=== PATIENT | male | born 1975 | race Caucasian/White ===

== ENCOUNTER 2019-11-04 13:03 | Emergency (ER) | payer BC, SELFPAY ==
--- NOTE | 2019-11-04 13:16 | XR_ITS ---
PROCEDURE: XR LUMBAR SPINE 2-3V CLINICAL INDICATION: pain Pain following injury COMPARISON: No exams were available for comparison FINDINGS: No obvious fracture or dislocation. There is normal alignment. Degenerative disc disease is present in the lower thoracic spine and thoracolumbar junction as well as L4-5.. Endplate osteophytes are noted in the lumbar spine and lower thoracic spine IMPRESSION: No acute findings. Dictated by: Josr Jackson MD 11/04/2019 15:06 Electronically signed by Josr Jackson MD in [place] 11/04/2019 15:06
--- NOTE | 2019-11-04 13:21 | XR_ITS ---
PROCEDURE: XR SHOULDER LT MIN 2V CLINICAL INDICATION: pain COMPARISON: No exams were available for comparison FINDINGS: No fracture or dislocation. No lytic or blastic change. There is normal mineralization. The joint spaces are well-preserved. No significant degenerative/arthritic changes. No erosive changes evident. Other findings:None. IMPRESSION: No acute findings. Dictated by: Josr Jackson MD 11/04/2019 15:02 Electronically signed by Josr Jackson MD in [place] 11/04/2019 15:02
[2019-11-04 13:22] VITALS: BP 128/72; PULSE 94; RESP 21; TEMP 36.5; O2SAT 95; BMI 55.8
--- NOTE | 2019-11-04 13:24 | XR_ITS ---
PROCEDURE: XR COCCYX 2V CLINICAL INDICATION: injury Posttraumatic pain COMPARISON: No exams were available for comparison FINDINGS: The exam is technically limited due to patient's body habitus. No definite fracture or dislocation evident. If pain persists, CT may provide more thorough evaluation. The joint spaces are well-preserved. No significant degenerative/arthritic changes. No erosive changes evident. Other findings:None. IMPRESSION: No acute findings. Dictated by: Josr Jackson MD 11/04/2019 15:04 Electronically signed by Josr Jackson MD in [place] 11/04/2019 15:04
--- NOTE | 2019-11-04 14:07 | HMH.EDUTC ---
[facility] [place] Disposition Clinical Impression: Fall (on) (from) unspecified stairs and steps, initial encounter, Coccyx pain Low back pain Qualifiers: Chronicity: acute Back pain laterality: bilateral Sciatica presence: without sciatica Qualified Code(s): M54.5 - Low back pain Sprain of left shoulder Qualifiers: Encounter type: initial encounter Shoulder sprain type: unspecified sprain Qualified Code(s): S43.402A - Unspecified sprain of left shoulder joint, initial encounter Disposition: Home, Self-Care Condition on Discharge: Good Instructions: Low Back Pain, DI for Coccyx Fracture, DI for Shoulder Sprain Additional Instructions: Go home and rest. It would be best if you rested tomorrow too. No heavy lifting. No twisting. Take the oral medications as directed. The muscle relaxer (robaxin) will make you drowsy, so don't drive or operate heavy machinery after taking it. Follow up with your regular doctor. Follow up with orthopedics if you continue to have problems. I put in a referral to Dr. Pickett. You would need to call his office to schedule an appointment if your symptoms are not improving. GO TO THE ER FOR ANY WORSENING SYMPTOMS OR CONCERN, ESPECIALLY BOWEL OR BLADDER ISSUES, SADDLE AREA NUMBNESS, FEVER, ETC Prescriptions: Ibuprofen [Ibuprofen 800mg Tablet] 800 mg PO Q8HP PRN #30 tab PRN Reason: Moderate Pain Transmission Status: Received by [facility] methocarbamoL [Robaxin 750mg Tab] 750 mg PO TIDP PRN #30 tab PRN Reason: Muscle Spasm Transmission Status: Received by [facility] Referrals: Parminder Dudley MD [Primary Care Provider] - Yunior Pickett MD [Staff Physician] - Forms: Work/School Release Time of Disposition: 14:17 Medical Decision Making - Medical Records Medical records reviewed: Yes: I reviewed the patient's medical records. - Jorge Inquiry Pt receiving controlled substance: No Vital Signs: 11/04/19 13:22 11/04/19 14:17 Temperature 97.7 F 97.7 F Temperature Source Oral Pulse Rate 94 H Pulse Rate [Right Brachial] 94 H Respiratory Rate 21 21 Blood Pressure 128/72 Blood Pressure [Right Arm] 128/72 Blood Pressure Mean [Right Arm] 90 Blood Pressure Source [Right Arm] Automatic Cuff Blood Pressure Position [Right Arm] Sitting 02 Sat by Pulse Oximetry 95 Oxygen Delivery Method Room Air Orders (Tests/Meds): ED MEDICATIONS Discontinued Medications Generic Name Dose Route Start Last Admin Trade Name Aicha PRN Reason Stop Dose Admin Ketorolac Tromethamine 60 mg 11/04/19 13:57 11/04/19 13:58 Toradol 60mg/2ml Vial IM 11/04/19 13:58 60 mg ONCE ONE Administration - Radiology Data #1 Image(s): L-Spine Image Reviewed: Yes I reviewed the patient's radiology image, Yes I have reviewed radiologist's interpretation Preliminary Findings: No Fracture Seen FINDINGS: No obvious fracture or dislocation. There is normal alignment. Degenerative disc disease is present in the lower thoracic spine and thoracolumbar junction as well as L4-5.. Endplate osteophytes are noted in the lumbar spine and lower thoracic spine IMPRESSION: No acute findings. #2 Image(s): L-Spine Image Reviewed: Yes I reviewed the patient's radiology image, Yes I have reviewed radiologist's interpretation Preliminary Findings: No Fracture Seen PROCEDURE: XR COCCYX 2V CLINICAL INDICATION: injury Posttraumatic pain COMPARISON: No exams were available for comparison FINDINGS: The exam is technically limited due to patient's body habitus. No definite fracture or dislocation evident. If pain persists, CT may provide more thorough evaluation. The joint spaces are well-preserved. No significant degenerative/arthritic changes. No erosive changes evident. Other findings:None. IMPRESSION: No acute findings. #3 Image(s): Shoulder Image Reviewed: Yes I reviewed the patient's radiology image, Yes I have reviewed radio
[2019-11-04 14:17] VITALS: BP 128/72; PULSE 94; RESP 21; TEMP 36.5; O2SAT 95
== END 2019-11-04 14:24 | disposition home or self-care (01) ==
PROVIDERS: Emergency Provider Nurse Practitioner Family; PCP Internal Medicine Adolescent Medicine
DX: S43.402A Unspecified sprain of left shoulder joint, initial encounter (principal); W10.9XXA Fall (on) (from) unspecified stairs and steps, initial encounter; S30.0XXA Contusion of lower back and pelvis, initial encounter; F17.210 Nicotine dependence, cigarettes, uncomplicated
CPT/HCPCS: 72100; 72220; 73030; 96372; 99202

== ENCOUNTER 2020-03-20 17:00 | Outpatient (RCR) | payer BC, SELFPAY | END 2020-04-10 17:26 | disposition home or self-care (01) | LOC: PT.CARL 17:00 | PROVIDERS: PCP Internal Medicine Adolescent Medicine; Visit Provider Orthopaedic Surgery | DX: M25.562 Pain in left knee (principal) | CPT/HCPCS: 97010; 97014; 97110; 97140; 97163; G0283 ==

== ENCOUNTER 2020-06-05 16:28 | Emergency (ER) | payer BC, SELFPAY ==
[2020-06-05 16:35] VITALS: BP 171/96; PULSE 87; RESP 19; TEMP 36.8; O2SAT 98; BMI 56.5
--- NOTE | 2020-06-05 16:45 | HMH.EDUTC ---
[facility] [place] Disposition Clinical Impression: Exposure to COVID-19 virus Disposition: Home, Self-Care Condition on Discharge: Good Instructions: Preventing the Spread of Coronavirus Discharge Instructions Additional Instructions: *Monitor Temp, Over the counter Motrin or Tylenol as directed/as needed Tylenol every 4 hours and Motrin every 6 hours (as long as your family doctor has told you that you can take it) for fever or pain. and straight to ER if unable to lower temp less than 101.0 after medication given *Warm salt water gargles may help to soothe the throat *Throat Lozenges *Warm fluids like tea with honey may help to soothe the throat *Sleep elevated *Humidifier/Vaporizer Follow up IMMEDIATELY for new or worsening symptoms or no Noticeable improvement over the next 48-72 hours. 911 for difficulty breathing or swallowing Your blood pressure was elevated today in the Clinic make sure to watch your blood pressure and follow up with your family doctor for further evaluation if it remains elevated You was tested for today for COVID19 your test result should be back in the next 24-48 hours, you may call to the [facility] tomorrow to see if your test results are back and the result [phone] [facility] hours are 9am-9pm You was given a handout with instructions for Self Quarantine and Self isolation for while you wait on test results and what to do if they are positive If you are positive the Health Dept will be contacting you also Referrals: Parminder Dudley MD [Primary Care Provider] - As needed Forms: Work/School Release Time of Disposition: 16:46 Medical Decision Making - Jorge Inquiry Pt receiving controlled substance: No Jorge was queried for this patient: No Vital Signs: 06/05/20 16:35 Temperature 98.2 F Temperature Source Oral Pulse Rate [Right Brachial] 87 Respiratory Rate 19 Blood Pressure [Right Arm] 171/96 H Blood Pressure Mean [Right Arm] 121 Blood Pressure Source [Right Arm] Automatic Cuff Blood Pressure Position [Right Arm] Sitting 02 Sat by Pulse Oximetry 98 Oxygen Delivery Method Room Air Orders (Tests/Meds): ORDERS Category Date Time Status Covid-19 Nasal PCR Sendout [facility] 06/05/20 16:31 Ordered [facility] [place] HPI - General Stated complaint: cov Time Seen by Provider: 06/05/20 16:45 Mode of Arrival: Ambulatory Source of Information: Patient Limitations: No Limitations Description of Symptoms (Recalled from Triage Doc. by RN): PATIENT REQUESTING COVID TEST D/T EXPOSURE; DENIES SYMPTOMS HEENT Symptoms (Recalled from RN notes): No Resp Symptoms (Recalled from RN notes): No Skin Symptoms (Recalled from RN notes): No MS Symptoms (Recalled from RN notes): No Functional Status (Recalled from RN notes): WNL - History of Present Illness Provider Complaint: Patient states that he was recently around someone who was dx with COVID States that he is not having any symptoms but wanted to get tested to make sure he was negative for the Virus - Related Data Home Medications Medication Instructions Recorded Confirmed Lisinopril/Hydrochlorothiazide 1 tab PO DAILY 11/04/19 11/04/19 [Lisinopril-Hctz 20-12.5 mg Tab] Rosuvastatin Calcium [Crestor 10mg 10 mg PO HS 11/04/19 11/04/19 Tablets] Previous Rx's Medication Instructions Recorded Ibuprofen [Ibuprofen 800mg 800 mg PO Q8HP PRN #30 tab 11/04/19 Tablet] methocarbamoL [Robaxin 750mg Tab] 750 mg PO TIDP PRN #30 tab 11/04/19 Allergies Allergy/AdvReac Type Severity Reaction Status Date / Time No Known Allergies Allergy Verified 11/04/19 13:27 - Worker's Comp Is this a Worker's Comp case?: No [facility] History - Hepatitis A Screen Drug use history?: No High risk sexual behaviors?: No History of sexually transmitted infection?: No Currently employed?: No Childcare worker?: No Do you have indoor plumbing?: Yes Do you have electricity?: Yes Attestation statement:: This patient has been screened for Hepatitis A risk factors
[2020-06-05 16:50] VITALS: BP 171/96; PULSE 87; RESP 19; TEMP 36.8; O2SAT 98
[2020-06-06 22:00] LABS: Covid-19 Nasal PCR Sendout Lex NOT DETECTED
== END 2020-06-05 16:52 | disposition home or self-care (01) ==
PROVIDERS: Emergency Provider Nurse Practitioner; PCP Internal Medicine Adolescent Medicine
DX: Z20.828 Contact with and (suspected) exposure to other viral communicable diseases (principal); I10 Essential (primary) hypertension; F17.210 Nicotine dependence, cigarettes, uncomplicated
CPT/HCPCS: 99201; U0004

== ENCOUNTER → 2020-06-16 11:50 | Outpatient (CLI) | payer BC, SELFPAY ==
[2020-06-16 14:18] LABS: Chloride 100 mmol/L (98-107); Potassium 4.6 mmoL/L (3.5-5.1); Sodium 136 mmol/L (136-145)
[2020-06-16 14:21] LABS: Alanine Aminotransferase 19 U/L (12-78); Albumin/Globulin Ratio 1.4 (1.1-1.8); Alkaline Phosphatase 72 U/L (38-126); Anion Gap 11.6 mEq/L (5-15); Aspartate Amino Transferase 25 U/L (17-59); Bilirubin,Total 0.6 mg/dl (0.2-1.3); Blood Urea Nitrogen 13 mg/dl (9-20); Carbon Dioxide 29 mmol/L (22.0-30.0); Cholesterol 144 mg/dl (140-200); Estimated Glomerular Filt Rate 106 ml/min (>60); GFR (African American) 128 ML/MIN (>60); Globulin 2.9 g/dL (1.3-3.2); Total Protein,Serum 6.9 g/dl (6.3-8.2); Triglycerides 183 mg/dl (30-150); VLDL Cholesterol 37 mg/dL (0-40)
[2020-06-16 14:22] LABS: Calcium 9.4 mg/dl (8.4-10.2); Chol/HDL Ratio 4.8 (1-3.5); Glucose 98 mg/dl (74-100); HDL Cholesterol 30 mg/dl (40-60)
[2020-06-16 14:33] LABS: Direct LDL Cholesterol 80.66 mg/dL (100-129)
== END ==
PROVIDERS: Visit Provider Nurse Practitioner Family
DX: I10 Essential (primary) hypertension (principal); E78.5 Hyperlipidemia, unspecified
CPT/HCPCS: 36415; 80053; 80061

== ENCOUNTER → 2021-03-07 18:20 | Outpatient (CLI) | payer BC, SELFPAY ==
[2021-03-07 18:57] LABS: Basophils # 0.1 K/mm3 (0-0.2); Basophils % 0.5 % (0.1-2.0); Eosinophils # 0.3 K/mm3 (0.0-0.4); Hematocrit 43.4 % (42.0-52.0); Hemoglobin 14.6 g/dL (14.1-18.0); Lymphocytes % 21.8 % (10-50); Mean Corpuscular HGB Conc 33.6 g/dL (31.8-35.4); Mean Corpuscular Hemoglobin 28.9 pg (27.0-31.2); Mean Platelet Volume 8.4 fl (7.4-10.4); Monocytes # 0.8 K/mm3 (0.1-1.0); Monocytes % 5.4 % (1.7-9.3); Neutrophils # 9.7 K/mm3 (1.8-7.8); Neutrophils % 70.3 % (37.0-80.0); Platelet Count 237 K/mm3 (142-424); Red Blood Count 5.05 M/mm3 (4.60-6.20); White Blood Count 13.8 K/mm3 (4.8-10.8)
[2021-03-07 19:30] LABS: Alanine Aminotransferase 23 U/L (12-78); Albumin/Globulin Ratio 1.3 (1.1-1.8); Alkaline Phosphatase 77 U/L (38-126); Aspartate Amino Transferase 22 U/L (17-59); Bilirubin,Total 0.4 mg/dl (0.2-1.3); Blood Urea Nitrogen 11 mg/dl (9-20); Calcium 9.2 mg/dl (8.4-10.2); Carbon Dioxide 25 mmol/L (22.0-30.0); Chloride 102 mmol/L (98-107); Chol/HDL Ratio 4.1 (1-3.5); Cholesterol 144 mg/dl (140-200); Estimated Glomerular Filt Rate 146 ml/min (>60); GFR (African American) 177 ML/MIN (>60); Globulin 3.2 g/dL (1.3-3.2); Glucose 88 mg/dl (74-100); HDL Cholesterol 35 mg/dl (40-60); Sodium 135 mmol/L (136-145); Total Protein,Serum 7.2 g/dl (6.3-8.2); Triglycerides 185 mg/dl (30-150); VLDL Cholesterol 37 mg/dL (0-40)
[2021-03-07 19:41] LABS: Direct LDL Cholesterol 77.29 mg/dL (100-129)
[2021-03-07 19:59] LABS: Hemoglobin A1C 4.3 % (4.0-6.0)
== END ==
PROVIDERS: Visit Provider Internal Medicine Adolescent Medicine
DX: I10 Essential (primary) hypertension (principal); E78.5 Hyperlipidemia, unspecified
CPT/HCPCS: 80053; 80061; 83036; 85025

== ENCOUNTER → 2021-05-09 18:51 | Outpatient (CLI) | payer BC, SELFPAY ==
[2021-05-09 20:31] LABS: Thyroid Stimulating Hormone 1.35 uIU/mL (0.465-4.68)
[2021-05-17 15:10] LABS: Testosterone, Total, LC/MS 147.7 ng/dL (264.0-916.0); Testosterone,Free 4.7 pg/mL (6.8-21.5)
== END ==
PROVIDERS: Visit Provider Internal Medicine Adolescent Medicine
DX: R53.83 Other fatigue (principal)
CPT/HCPCS: 84402; 84403; 84443

== ENCOUNTER → 2021-10-17 09:32 | Outpatient (CLI) | payer BC, SELFPAY ==
[2021-10-17 14:57] LABS: Alanine Aminotransferase 24 U/L (12-78); Albumin Level 3.8 g/dl (3.5-5.0); Albumin/Globulin Ratio 1.4 (1.1-1.8); Alkaline Phosphatase 67 U/L (38-126); Anion Gap 9.5 mEq/L (5-15); Aspartate Amino Transferase 23 U/L (17-59); Bilirubin,Total 0.3 mg/dl (0.2-1.3); Blood Urea Nitrogen 15 mg/dl (9-20); Calcium 8.7 mg/dl (8.4-10.2); Carbon Dioxide 30 mmol/L (22.0-30.0); Chloride 103 mmol/L (98-107); Chol/HDL Ratio 4.9 (1-3.5); Cholesterol 143 mg/dl (140-200); Estimated Glomerular Filt Rate 146 ml/min (>60); GFR (African American) 177 ML/MIN (>60); Globulin 2.7 g/dL (1.3-3.2); Glucose 113 mg/dl (74-100); HDL Cholesterol 29 mg/dl (40-60); Potassium 4.5 mmoL/L (3.5-5.1); Sodium 138 mmol/L (136-145); Total Protein,Serum 6.5 g/dl (6.3-8.2); Triglycerides 173 mg/dl (30-150); VLDL Cholesterol 35 mg/dL (0-40)
[2021-10-17 15:09] LABS: Direct LDL Cholesterol 79.63 mg/dL (100-129)
[2021-10-18 12:56] LABS: Hemoglobin A1C 6.2 % (4.0-6.0)
[2021-10-29 15:12] LABS: Testosterone, Total, LC/MS 143.3 ng/dL (264.0-916.0); Testosterone,Free 6.9 pg/mL (6.8-21.5)
== END ==
PROVIDERS: Internal Medicine Adolescent Medicine; Visit Provider Nurse Practitioner Family
DX: Z00.00 Encounter for general adult medical examination without abnormal findings (principal); E78.5 Hyperlipidemia, unspecified; I10 Essential (primary) hypertension; R79.89 Other specified abnormal findings of blood chemistry; R73.9 Hyperglycemia, unspecified
CPT/HCPCS: 36415; 80053; 80061; 83036; 84402; 84403

== ENCOUNTER → 2022-06-03 05:58 | Outpatient (CLI) | payer BC, OTHER, SELFPAY | PROVIDERS: PCP Family Medicine; Visit Provider Family Medicine | DX: R30.0 Dysuria (principal) | CPT/HCPCS: 87086 ==

== ENCOUNTER → 2022-09-23 23:39 | Outpatient (CLI) | payer BC, OTHER, SELFPAY ==
[2022-09-23 16:50] LABS: Chloride 102 mmol/L (98-107); Potassium 4.4 mmoL/L (3.5-5.1); Sodium 137 mmol/L (136-145)
[2022-09-23 16:53] LABS: Alanine Aminotransferase 25 U/L (12-78); Albumin Level 3.9 g/dl (3.5-5.0); Albumin/Globulin Ratio 1.3 (1.1-1.8); Alkaline Phosphatase 82 U/L (38-126); Anion Gap 12.4 mEq/L (5-15); Aspartate Amino Transferase 25 U/L (17-59); Bilirubin,Total 0.4 mg/dl (0.2-1.3); Blood Urea Nitrogen 14 mg/dl (9-20); Carbon Dioxide 27 mmol/L (22.0-30.0); Cholesterol 122 mg/dl (140-200); Estimated Glomerular Filt Rate 146 ml/min (>60); GFR (African American) 176 ML/MIN (>60); Total Protein,Serum 6.9 g/dl (6.3-8.2); Triglycerides 149 mg/dl (30-150); VLDL Cholesterol 30 mg/dL (0-40)
[2022-09-23 16:54] LABS: Calcium 8.7 mg/dl (8.4-10.2); Chol/HDL Ratio 4.2 (1-3.5); Glucose 128 mg/dl (74-100); HDL Cholesterol 29 mg/dl (40-60)
[2022-09-23 17:01] LABS: Hemoglobin A1C 6.5 % (4.0-6.0)
[2022-09-23 17:05] LABS: Direct LDL Cholesterol 75.99 mg/dL (100-129)
[2022-10-01 04:08] LABS: Testosterone, Total, LC/MS 76.6 ng/dL (264.0-916.0)
== END ==
PROVIDERS: PCP Family Medicine; Visit Provider Family Medicine
DX: E34.9 Endocrine disorder, unspecified (principal); E78.5 Hyperlipidemia, unspecified; I10 Essential (primary) hypertension; E66.9 Obesity, unspecified; G47.33 Obstructive sleep apnea (adult) (pediatric); Z68.44 Body mass index [BMI] 60.0-69.9, adult
CPT/HCPCS: 80053; 80061; 83036; 84402; 84403

== ENCOUNTER → 2022-12-22 18:13 | Outpatient (CLI) | payer BC, OTHER, SELFPAY ==
[2022-12-22 20:02] LABS: Hemoglobin A1C 6.3 % (4.0-6.0)
[2022-12-22 20:56] LABS: Microalbumin/Creatinine Ratio 9.1
[2022-12-22 21:07] LABS: Creatinine,Urine Random 121 mg/dL (Not Estab.)
[2022-12-24 10:46] LABS: Testosterone,Total 403 ng/dL (264-916)
== END ==
PROVIDERS: PCP Family Medicine; Visit Provider Family Medicine
DX: E11.9 Type 2 diabetes mellitus without complications (principal); E34.9 Endocrine disorder, unspecified; Z79.84 Long term (current) use of oral hypoglycemic drugs
CPT/HCPCS: 82043; 82570; 83036; 84403

== ENCOUNTER → 2023-03-27 17:29 | Outpatient (CLI) | payer BC, OTHER, SELFPAY ==
[2023-03-27 20:04] LABS: Hemoglobin A1C 5.9 % (4.0-6.0)
== END ==
PROVIDERS: PCP Family Medicine; Visit Provider Family Medicine
DX: E11.9 Type 2 diabetes mellitus without complications (principal)
CPT/HCPCS: 83036

== ENCOUNTER 2023-06-14 19:24 | Emergency (ER) | payer BC, OTHER, SELFPAY ==
[2023-06-14 19:40] VITALS: BP 168/84; PULSE 92; RESP 18; TEMP 36.9; O2SAT 100; BMI 60.0
--- NOTE | 2023-06-14 19:51 | EXP.UTC ---
Discharge Plan Disposition Patient Disposition: Home, Self-Care Condition: Good Prescriptions Prescriptions: New ibuprofen [IBU] 800 mg tablet 800 mg PO Q8HP PRN (Reason: Moderate Pain) Qty: 30 0RF No Action betamethasone dipropionate 0.05 % cream 1 applic topical DAILY Qty: 15 0RF lisinopril-hydrochlorothiazide 20-12.5 mg tablet 2 tab PO DAILY 90 Days Qty: 180 2RF sildenafil 25 mg tablet 25 - 100 mg PO DAILY PRN (Reason: sexual activity) Qty: 30 0RF (DME) syringe with needle [BD Luer-Cl Syringe] 3 mL 23 gauge x 1 1/2 syringe See Rx Instructions .ROUTE .MEDSUPPLY Qty: 6 2RF Rx Instructions: As directed testosterone cypionate 200 mg/mL oil 200 mg IM WEEKLY Qty: 10 2RF Rx Instructions: 200 mg every week rosuvastatin 10 mg tablet 10 mg PO HS 90 Days Qty: 90 0RF Mounjaro 2.5 mg/0.5 mL pen injector 2.5 mg SQ WEEKLY 28 Days Qty: 2 2RF Referrals Follow up/Referrals: Sameer Ly MD [Primary Care Provider] - See instructions Activity Restrictions/Add. Instructions Additional Instructions/Restrictions: Rest the extremity, Elevate the extremity as tolerated while you are resting. Take ibuprofen for pain if needed. I sent in a prescription to your pharmacy. You need to have a venous doppler of your leg done. We are unable to get this done here tonight. It will be done in the morning, so please return to the hospital with the outpatient order that we are giving you then. Follow up with your regular doctor. GO TO THE ER FOR ANY WORSENING SYMPTOMS Clinical Impressions Clinical Impression: Pain in right leg Stand Alone Forms Stand Alone Forms: Work/School Release Instructions Patient Instructions: DI for Leg Pain Discharge ED Provider: Dheeraj Sharp [facility] [place] General Stated complaint: red spot on RT leg Time Seen by Provider: 06/14/23 19:51 History of Present Illness Provider Complaint: He states that he has had redness and swelling of his right leg for the past 1 day. He states that there is an area on the outside of his thigh that is red, swollen, and tender. He denies any pain or swelling anywhere elsewhere. He denies any chest pain, shortness or breath, or any other symptoms. He denies any personal or family history of blood clots. Related Data Previous Rx's Medication Instructions Recorded lisinopril 20 2 tab PO DAILY Hypertension 90 11/12/22 mg-hydrochlorothiazide 12.5 mg days #180 tabs tablet sildenafil 25 mg tablet 25 - 100 mg PO DAILY PRN sexual 12/23/22 activity #30 tabs betamethasone dipropionate 0.05 % 1 applic topical DAILY rash on 03/27/23 topical cream back #15 grams syringe with needle 3 mL 23 gauge #6 ea 04/13/23 x 1 1/2 (BD Luer-Cl Syringe) testosterone cypionate 200 mg/mL 200 mg IM WEEKLY 0 days #10 mL 04/13/23 intramuscular oil rosuvastatin 10 mg tablet 10 mg PO HS Cholesterol 90 days 04/27/23 #90 tabs tirzepatide 2.5 mg/0.5 mL 2.5 mg (0.5 mL) SQ WEEKLY Diabetes 05/19/23 subcutaneous pen injector 4 weeks #2 mL (Crista) ibuprofen 800 mg tablet (IBU) 800 mg PO Q8HP PRN Moderate Pain 06/14/23 #30 tabs Allergies Allergy/AdvReac Type Severity Reaction Status Date / Time No Known Allergies Allergy Verified 03/27/23 15:02 [facility] Disclaimer: The information contained in this section may have been updated after the patient was seen, as this information can be updated by other users. Medical History Hyperlipidemia Hypertension Hypotestosteronemia Lipoma of back Obesity Sprain of left shoulder Umbilical hernia Surgical History History of knee surgery Family History Mother Hypertension Father Hypertension Stroke Social History Smoking Status: Current every day smok
[2023-06-14 20:14] VITALS: BP 168/84; PULSE 92; RESP 18; TEMP 36.9; O2SAT 100
== END 2023-06-14 20:14 | disposition home or self-care (01) ==
PROVIDERS: Emergency Provider Nurse Practitioner Family; PCP Family Medicine
DX: M79.604 Pain in right leg (principal); R22.41 Localized swelling, mass and lump, right lower limb; I10 Essential (primary) hypertension; E78.5 Hyperlipidemia, unspecified; F17.210 Nicotine dependence, cigarettes, uncomplicated
CPT/HCPCS: 99204; 99212; G0463

== ENCOUNTER → 2023-06-15 09:44 | Outpatient (CLI) | payer BC, OTHER, SELFPAY | PROVIDERS: PCP Family Medicine; Visit Provider Nurse Practitioner Family | DX: M79.604 Pain in right leg (principal); R60.0 Localized edema | CPT/HCPCS: 93971 ==

== ENCOUNTER → 2023-06-25 08:59 | Outpatient (CLI) | payer BC, OTHER, SELFPAY ==
[2023-06-25 09:22] LABS: Basophils # 0.1 K/mm3 (0-0.2); Basophils % 0.5 % (0.1-2.0); Eosinophils # 0.3 K/mm3 (0.0-0.4); Eosinophils % 3.5 % (0.1-12.0); Hematocrit 49.8 % (42.0-52.0); Hemoglobin 16.3 g/dL (14.1-18.0); Lymphocytes # 2.7 K/mm3 (0.7-4.5); Lymphocytes % 27.4 % (10-50); Mean Corpuscular HGB Conc 32.6 g/dL (31.8-35.4); Mean Corpuscular Hemoglobin 26.7 pg (27.0-31.2); Mean Corpuscular Volume 81.7 fl (80-94); Mean Platelet Volume 8.2 fl (7.4-10.4); Monocytes # 0.7 K/mm3 (0.1-1.0); Monocytes % 7.3 % (1.7-9.3); Neutrophils % 61.3 % (37.0-80.0); Platelet Count 230 K/mm3 (142-424); Red Cell Distribution Width 16.2 % (11.5-17.5); White Blood Count 9.7 K/mm3 (4.8-10.8)
[2023-06-25 10:17] LABS: Alanine Aminotransferase 23 U/L (12-78); Albumin Level 3.9 g/dl (3.5-5.0); Albumin/Globulin Ratio 1.3 (1.1-1.8); Alkaline Phosphatase 68 U/L (38-126); Anion Gap 6.5 mEq/L (5-15); Aspartate Amino Transferase 27 U/L (17-59); Bilirubin,Total 0.5 mg/dl (0.2-1.3); Blood Urea Nitrogen 15 mg/dl (9-20); Calcium 8.5 mg/dl (8.4-10.2); Carbon Dioxide 29 mmol/L (22.0-30.0); Chloride 102 mmol/L (98-107); Chol/HDL Ratio 5.2 (1-3.5); Cholesterol 119 mg/dl (140-200); Estimated Glomerular Filt Rate 104 ml/min (>60); GFR (African American) 126 ML/MIN (>60); Glucose 95 mg/dl (74-100); HDL Cholesterol 23 mg/dl (40-60); Potassium 4.5 mmoL/L (3.5-5.1); Sodium 133 mmol/L (136-145); Total Protein,Serum 6.9 g/dl (6.3-8.2); Triglycerides 113 mg/dl (30-150); VLDL Cholesterol 23 mg/dL (0-40)
[2023-06-25 10:28] LABS: Direct LDL Cholesterol 78.53 mg/dL (100-129)
[2023-06-25 10:50] LABS: Hemoglobin A1C 5.9 % (4.0-6.0)
[2023-06-25 17:01] LABS: Creatinine,Urine Random 95 mg/dL (Not Estab.); Microalbumin < 6.000 mg/L (0-16.7)
[2023-07-01 10:43] LABS: Free Testosterone (Direct) 18.5 pg/mL (6.8-21.5); Testosterone, Total, LC/MS 639.2 ng/dL (264.0-916.0)
== END ==
PROVIDERS: PCP Family Medicine; Visit Provider Family Medicine
DX: E78.5 Hyperlipidemia, unspecified (principal); I10 Essential (primary) hypertension; E34.9 Endocrine disorder, unspecified; E11.9 Type 2 diabetes mellitus without complications; Z79.85 Long-term (current) use of injectable non-insulin antidiabetic drugs; Z72.0 Tobacco use
CPT/HCPCS: 36415; 80053; 80061; 82043; 82570; 83036; 85025

== ENCOUNTER 2023-10-19 23:19 | Outpatient (CLI) | payer BC, OTHER, SELFPAY ==
[2023-10-19 17:59] LABS: Basophils # 0.1 K/mm3 (0-0.2); Basophils % 0.6 % (0.1-2.0); Eosinophils # 0.2 K/mm3 (0.0-0.4); Eosinophils % 2.5 % (0.1-12.0); Hematocrit 51.2 % (42.0-52.0); Hemoglobin 16.2 g/dL (14.1-18.0); Lymphocytes # 2.4 K/mm3 (0.7-4.5); Lymphocytes % 24.4 % (10-50); Mean Corpuscular HGB Conc 31.6 g/dL (31.8-35.4); Mean Corpuscular Hemoglobin 27.9 pg (27.0-31.2); Mean Corpuscular Volume 88.5 fl (80-94); Monocytes # 0.8 K/mm3 (0.1-1.0); Monocytes % 8.4 % (1.7-9.3); Neutrophils # 6.2 K/mm3 (1.8-7.8); Neutrophils % 64.1 % (37.0-80.0); Platelet Count 218 K/mm3 (142-424); Red Blood Count 5.78 M/mm3 (4.60-6.20); White Blood Count 9.7 K/mm3 (4.8-10.8)
[2023-10-19 19:26] LABS: Hemoglobin A1C 6.2 % (4.0-6.0)
== END 2023-10-19 23:59 ==
LOC: LAB.DROPOF 23:19
PROVIDERS: PCP Family Medicine; Visit Provider Family Medicine
DX: E11.9 Type 2 diabetes mellitus without complications (principal)
CPT/HCPCS: 83036; 85025

== ENCOUNTER 2024-04-23 09:09 | Outpatient (CLI) | payer BC, OTHER, SELFPAY ==
[2024-04-23 09:32] LABS: Basophils # 0.2 K/mm3 (0-0.2); Basophils % 1.2 % (0.1-2.0); Eosinophils # 0.5 K/mm3 (0.0-0.4); Eosinophils % 3.3 % (0.1-12.0); Hematocrit 52.5 % (42.0-52.0); Hemoglobin 17.8 g/dL (14.1-18.0); Lymphocytes # 2.9 K/mm3 (0.7-4.5); Lymphocytes % 21.2 % (10-50); Mean Corpuscular HGB Conc 33.9 g/dL (31.8-35.4); Mean Corpuscular Hemoglobin 29.1 pg (27.0-31.2); Mean Corpuscular Volume 85.9 fl (80-94); Mean Platelet Volume 7.9 fl (7.4-10.4); Monocytes # 0.9 K/mm3 (0.1-1.0); Monocytes % 6.6 % (1.7-9.3); Neutrophils # 9.2 K/mm3 (1.8-7.8); Neutrophils % 67.6 % (37.0-80.0); Platelet Count 192 K/mm3 (142-424); Red Blood Count 6.11 M/mm3 (4.60-6.20); Red Cell Distribution Width 15.7 % (11.5-17.5); White Blood Count 13.7 K/mm3 (4.8-10.8)
[2024-04-23 12:36] LABS: Hemoglobin A1C 5.9 % (4.0-6.0)
[2024-04-23 13:59] LABS: Albumin Level 4.3 g/dl (3.5-5.0); Chloride 104 mmol/L (98-107); Sodium 137 mmol/L (136-145)
[2024-04-23 14:00] LABS: Potassium 4.6 mmoL/L (3.5-5.1)
[2024-04-23 14:02] LABS: Alanine Aminotransferase 30 U/L (12-78); Albumin/Globulin Ratio 1.4 (1.1-1.8); Anion Gap 13.6 mEq/L (5-15); Aspartate Amino Transferase 35 U/L (17-59); Blood Urea Nitrogen 14 mg/dl (9-20); Carbon Dioxide 24 mmol/L (22.0-30.0); Estimated Glomerular Filt Rate 121 ml/min (>60); GFR (African American) 146 ML/MIN (>60); Total Protein,Serum 7.3 g/dl (6.3-8.2)
[2024-04-23 14:03] LABS: Alkaline Phosphatase 84 U/L (38-126); Bilirubin,Total 0.7 mg/dl (0.2-1.3); Calcium 9.8 mg/dl (8.4-10.2); Chol/HDL Ratio 4.6 (1-3.5); Cholesterol 137 mg/dl (140-200); Glucose 97 mg/dl (74-100); HDL Cholesterol 30 mg/dl (40-60); Triglycerides 211 mg/dl (30-150); VLDL Cholesterol 42 mg/dL (0-40)
[2024-04-23 14:34] LABS: Thyroid Stimulating Hormone 0.69 uIU/mL (0.465-4.68)
== END 2024-04-23 23:59 | disposition home or self-care (01) ==
LOC: LAB 09:10
PROVIDERS: PCP Family Medicine; Visit Provider Family Medicine
DX: I10 Essential (primary) hypertension (principal); E78.5 Hyperlipidemia, unspecified; Z72.0 Tobacco use
CPT/HCPCS: 36415; 80050; 80053; 80061; 83036; 84443; 85025

== ENCOUNTER 2025-01-23 12:31 | Emergency (ER) | payer BC, OTHER, SELFPAY ==
[2025-01-23] VITALS (7 sets, daily range): BP systolic 107–134; BP diastolic 70–76; PULSE 69–77; RESP 14–18; TEMP 36.7–36.8; O2SAT 96–99; BMI 55.8
--- NOTE | 2025-01-23 13:12 | PC.NURSE ---
pt brought back to room at this time
--- NOTE | 2025-01-23 13:16 | ED_ITS ---
<Statement entered by Angie Khan DO - 01/23/25 17:11> I was consulted by the SONJA, and we discussed the complexity of problems being addressed. I approve the treatment and management plan for this patient's care in the emergency department, thus performing a substantial portion of the medical decision making. Angie Khan DO Discharge Plan Disposition Patient Disposition: Home, Self-Care Condition: Good Prescriptions Prescriptions: New methocarbamol 750 mg tablet 750 mg PO TID Qty: 20 0RF No Action amoxicillin-pot clavulanate 875-125 mg tablet 1 tab PO BID Patient Comments: TAKE 1 TABLET BY MOUTH 2 (TWO) TIMES DAILY WITH BREAKFAST AND DINNER FOR 10 DAYS. sildenafil 25 mg tablet 25 - 100 mg PO DAILY PRN (Reason: sexual activity) Qty: 30 0RF (DME) syringe with needle [BD Luer-Cl Syringe] 3 mL 23 gauge x 1 1/2 syringe See Rx Instructions .ROUTE .MEDSUPPLY Qty: 6 2RF Rx Instructions: As directed testosterone cypionate 200 mg/mL oil 200 mg IM WEEKLY Qty: 10 2RF Rx Instructions: 200 mg every week lisinopril-hydrochlorothiazide 20-12.5 mg tablet 2 tab PO DAILY 90 Days Qty: 180 2RF tirzepatide 5 mg/0.5 mL pen injector 5 mg SQ WEEKLY 30 Days Qty: 2.5 2RF rosuvastatin 10 mg tablet 10 mg PO HS 90 Days Qty: 90 0RF ibuprofen [IBU] 800 mg tablet 800 mg PO Q8HP PRN (Reason: Moderate Pain) Qty: 30 0RF Referrals Follow up/Referrals: Sameer Ly MD [Primary Care Provider, Internal Medicine] - See instructions Activity Restrictions/Add. Instructions Additional Instructions/Restrictions: Please return to the emergency department with any worsening signs or symptoms, please follow-up with your PCP, would consider consider a course of physical therapy and MRI of the cervical spine if your symptoms last greater than 1 to 2 weeks, or you have any extension with numbness tingling, any sharp shooting pains down the arm, please continue take all your medication as prescribed including the muscle relaxer, and other anti-inflammatory medications. Clinical Impressions Clinical Impression: Cervicalgia Instructions Patient Instructions: DI for Neck Pain Print Language Print Language: Citizen Of [place] Discharge ED Provider: Angie Khan General Adult HPI General Chief complaint: PAIN Stated complaint: back/neck pain-no accident Time Seen by Provider: 01/23/25 13:12 Mode of Arrival: Ambulatory Source of Information: Patient Limitations: No Limitations History of Present Illness HPI narrative: 49-year-old male patient presents the ED with neck and scapular pain. Patient said it started on Thursday and has continued continuously gotten worse. He describes the pain as dull and achy. Patient denies any radiating pain or weakness in his legs and arms, no numbness or tingling in bilateral lower extremities and upper extremities. No nausea or vomiting no photophobia phonophobia he denies any fever chills, no shortness breath, no chest pain, no abdominal pain, no nausea no vomiting, no dysuria, no saddle anesthesia no urinary, bladder, or bowel dysfunction, denies any mid back pain, or lower back pain. He has tried Aleve with minimal relief. On a 1-10 pain scale he states his pain is around 6. His past medical history consisting of hypertension which he takes medication for. He works as a sales director doing sedentary work. He denies any traumatic injury that could have occurred. He states that his pain just started when he woke up on Thursday . Initial triage vitals were within normal limits. Patient is a current everyday smoker smoking about half a pack a day. He denies substance use and alcohol use. Onset (ago): day(s) Related Data Home Medications ?Medication ?Instructions ?Recorded ?Confirmed amoxicillin 875 mg-potassium 1 tab PO BID 10/24/24 clavulanate 125 mg tablet Previous Rx's ?Medication ?Instructions ?Recorded sildenafil 25 mg tablet 25 - 100 mg (1 - 4 x 25 mg) PO 12/23/22 DAILY PRN sexual activity #30 tabs ibuprofen 800 mg tablet (IBU) 800 mg PO Q8HP PRN Moder ate Pain 06/14/23 #30 tabs syringe with needle 3 mL 23 gauge #6 ea 05/19/24 x 1 1/2 (BD Luer-Cl Syringe) testosterone cypionate 200 mg/mL 200 mg IM WEEKLY 0 da ys #10 mL 06/02/24 intramuscular oil lisinopril 20 2 tab PO DAILY Hypertension 90 07/22/24 mg-hydrochlorothiazide 12.5 mg days #180 tabs tablet tirzepatide 5 mg/0.5 mL 5 mg (0.5 mL) SQ WEEKLY 30 d ays 07/22/24 subcutaneous pen injector #2.5 mL rosuvastatin 10 mg tablet 10 mg PO HS Cholesterol 90 d ays 01/16/25 #90 tabs methocarbamol 750 mg tablet 750 mg PO TID #20 tabs Allergies Allergy/AdvReac Type Severity Reaction Status Date / Time No Known Allergies Allergy Verified 10/24/24 14:31 [facility] Disclaimer: The information contained in this section may have been updated after the denise ent was seen, as this information can be updated by other users. Medical History Obesity Hyperlipidemia Hypertension Lipoma of back Hypotestosteronemia Umbilical hernia Sprain of left shoulder Surgical History History of knee surgery Family History Mother Hypertension Father Hypertension Stroke Social History Smoking Status: Current every day smoker tobacco type: cigarettes packs per day: 1 alcohol intake: current alcohol intake frequency: a few times a month substance use type: denies use current occupational status: employed Travel in the last 8 weeks?: None household members: family housing: house Have you lived/traveled outside [place] in past 30 days?: No Contact w/someone who lives/traveled outside US past 30 days?: No Exposure to someone with infectious disease in past 14 days?: No Do you have a fever (greater than 100.4 F or 38 C)?: No Have you tested positive for COVID-19?: No Exposed to someone with COVID-19 in past 14 days?: No Do you have a sore throat?: No Do you have a cough?: No Do you have any weakness?: No Do you have any diarrhea?: No Are you experiencing any unusual bleeding?: No Do you have any muscle aches/pain?: No Do you have any abdominal pain?: No Are you experiencing loss of taste or smell?: No Other Medical History Have you received the Pneumonia Vaccine: No ROS Obtained: Yes All systems reviewed & no additional complaints except as documented Physical Exam General General appearance: alert and in no apparent distress Head Head exam: atraumatic and normocephalic Eye Eye exam: Present PERRL and EOMI ENT ENT exam: Present mucous membranes moist Neck Neck exam: Present normal inspection Chest Chest inspection: Present normal inspection and symmetric chest wall rise Respiratory Respiratory exam: Present normal lung sounds bilaterally; Absent respiratory distress Cardiovascular Cardiovascular exam: Present regular rate and normal rhythm Abdominal Exam Abdominal exam: Present soft; Absent tenderness Extremities Exam Extremities exam: Present normal inspection, full ROM and other (Shoulder exami nation was performed, no tenderness over the left shoulder joint, there is some mild tenderness palpation to the trapezius/scalene region on the left, negative empty can sign on the left, otherwise neurovascular intact.); Absent tenderness Back Exam Back exam: Present normal inspection, tenderness and paraspinal tenderness; Absent vertebral tenderness Comment: Patient has paraspinal tenderness to the mid cervical region/scalene/trapezius region most notable on the left no overt spinal tenderness to palpation to the cervical thoracic or lumbar spine, no paraspinal tenderness to palpation to the thoracic or lumbar spine. Neurological Exam Neurological exam: Present alert, oriented X3 and other (Patient had 5 out of 5 strength in bilateral lower and upper extremities, no gross sensation deficit, otherwise neurovascular intact.); Absent motor sensory deficit Psychiatric Psychiatric exam: Present normal affect Skin Skin exam: Present warm and dry Medical Decision Making Medical Records Medical records reviewed: Yes I reviewed the patient's medical records. Screening: Per USPSTF and CDC recommendations, given the prevalence of disease in our region, it is our hospital?s policy to screen for HIV and viral Hepatitis for all patients aged 18 and over and those with ongoing risk factors. Jorge Inquiry Pt receiving controlled substance: No Jorge was queried for this patient: No Vital Signs: 01/23/25 13:17 01/23/25 13:23 01/23/25 13:33 Temperature 98.1 F 98.1 F Temperature Source Oral Oral Pulse Rate 74 77 Pulse Rate [Right] 74 Respiratory Rate 14 14 Blood Pressure 120/70 126/70 Blood Pressure [Right Arm] 120/70 Blood Pressure Mean [Right Arm] 86 Blood Pressure Source Automatic Cuff Blood Pressure Source [Right Arm] Automatic Cuff Blood Pressure Position Supine Blood Pressure Position [Right Arm] Supine 02 Sat by Pulse Oximetry 97 97 96 Oxygen Delivery Method Room Air Room Air Orders (Tests/Meds): ED MEDICATIONS Discontinued Medications Generic Name Dose Route Start Last Admin Trade Name Aicha PRN Reason Stop Dose Admin Acetaminophen 500 mg 01/23/25 13:35 01/23/25 13:43 Acetaminophen 500mg Tab PO 01/23/25 13:36 500 mg ONCE ONE Administration Ketorolac Tromethamine 15 mg 01/23/25 13:35 01/23/25 13:43 Ketorolac 30mg/Ml Vial IM 01/23/25 13:36 15 mg ONCE ONE Administration Methocarbamol 750 mg 01/23/25 13:35 01/23/25 13:43 Methocarbamol 500mg Tablet PO 01/23/25 13:36 750 mg ONCE ONE Administration Medical Decision Narrative: 49-year-old male presents emergency department with left-sided neck pain, differential diagnose include but not limited to, cervicalgia, degenerative disease cervical spine, other musculoskeletal neck pain, cervical radiculopathy among others. I discussed patient case with attending physician , she saw and examined the patient as well. Patient has no red flag signs or symptoms, thus will defer imaging studies at this time, as patient symptomatology been going on for the last 48 hours, no radicular symptomology, no gross sensation deficit, will treat with 15 mg IM Toradol, 500 mg Tylenol, 750 mg p.o. methocarbamol for symptomatic relief. Reexamination of the patient approximately 2:30 PM, patient states symptomatology has improved, I do believe that this is more musculoskel etal/cervicalgia because of the patient's neck pain, patient has no red flag signs or symptoms, no radicular symptomatology, no numbness or tingling, patient was given strict ED return precautions, patient voiced understanding and agreed with current treatment plan/discharge plan. Follow-up PCP in the upcoming days/weeks, will prescribe short course of muscle relaxer methocarbamol 750 mg p.o., as needed, would recommend physical therapy, possible MRI of cervical spine if symptoms persist. Critical Care Critical Care Time Critical Care Time: No
--- OUTSIDE RECORDS SUMMARY | 2025-01-23 13:29 | XMS_ITS | Clinical Summary ---
Author Organization [employer] ([place], [place], [place], [place]) Address [address] [place] [address] Care Team Providers Care Hr Assistant Name Role Phone Sameer Ly MD Primary Care Provider +1- [phone] Allergies No known active allergies Medications No known medications Encounters Date Type Department Care Team Description 11/04/2024 4:23 PM EDT - 11/04/2024 4:59 PM EDT Emergency [facility] Emergency Department [address] [place] [phone] Rosario Rivas MD Visit for suture removal (Primary Dx); Visit for wound check; Need for rabies vaccination Discharge Disposition: Home or Self Care 11/04/2024 Travel 10/28/2024 4:43 PM EDT - 10/28/2024 4:47 PM EDT Emergency [facility] Emergency Department [address] [place] [phone] Freda Sheehan MD Visit for wound check (Primary Dx) Discharge Disposition: Home or Self Care 10/28/2024 Travel 10/26/2024 4:26 PM EDT - 10/26/2024 5:07 PM EDT Emergency [facility] Emergency Department [address] [place] [phone] Calvin Burk MD Rabies, need for prophylactic vaccination against (Primary Dx) Discharge Disposition: Home or Self Care 10/26/2024 Travel 10/24/2024 12:44 PM EDT - 10/24/2024 1:09 PM EDT Emergency [facility] Emergency Department [address] [place] [phone] Skye Harry MD Need for immunization against rabies (Primary Dx) Discharge Disposition: Home or Self Care 10/24/2024 Travel from Last 3 Months Immunizations Name Administration Dates Next Due Rabies - Im Fibroblast Culture 11/04/2024,2024,10/24/2024,10/21/2024 Rabies Immune Globulin 10/21/2024 Tdap 10/21/2024 Social History Tobacco Use Types Packs/Day Years Used Date Smoking Tobacco: Some Days Cigarettes Smokeless Tobacco: Never Tobacco Cessation:Ready to Q uit: Not Asked; Counseling Given: Not Answered Alcohol Use Standard Drinks/Week Comments Yes 0 (1 standard drink = 0.6 oz pur e alcohol) rarely Sex and Gender Information Value Date Recorded Sex Assigned at Not on file Legal Sex Male 3:12 PM CDT Gender Identity Not on file Sexual Orientation Not on file Last Filed Vital Signs Vital Sign Reading Time Taken Comments Blood Pressure 153/83 11/04/2024 4:55 PM EDT Pulse 92 11/04/2024 4:55 PM EDT Temperature 36.8 C (98.2 F) 11/04/2024 4:55 PM EDT Respiratory Rate 18 11/04/2024 4:55 PM EDT Oxygen Saturation 99% 11/04/2024 4:25 PM EDT Inhaled Oxygen Concentration - - Weight 206.4 kg (455 lb) 11/04/2024 4:25 PM EDT Height 188 cm (6' 2 ) 11/04/2024 4:25 PM EDT Body Mass Index 58.42 11/04/2024 4:25 PM EDT Plan of Treatment Health Maintenance Due Date Last Done Comments CT Colonography 1976 Colonoscopy 1976 Colorectal Cancer Screening 1976 FOBT/FIT 1976 Fit-DNA (Cologuard) 1976 Sigmoidoscopy 1976 Depression Screening (12+) 1988 Tobacco Cessation Counseling and Screening (12+) 1988 HIV Screening 10/23/1991 Hepatitis C Screening 1994 Pneumococcal Vaccine: 0-49 Y ears (1 of 2 - PCV) 10/23/1995 Lipid Panel 10/23/2011 COVID-19 VACCINE ( season) 2024 07/23/2021, 10/31/2020, 10/10/2020 Influenza Vaccine (#1) 2025 DTAP/TDAP/TD VACCINES (2 - T d or Tdap) 10/21/2034 10/21/2024 Procedures Procedure Name Priority Date/Time Associated Diagnosis Comments SUTURE REMOVAL Routine 11/04/2024 4:54 PM EDT from Last 3 Months Results * Suture Removal (11/04/2024 4:54 PM EDT) Narrative Rosario Rivas MD - 11/04/2024 4:54 PM EDT Rosario Rivas MD 11/04/2024 4:55 PM Suture Removal Date/Time: 11/04/2024 4:54 PM Performed by: Rosario Rivas MD Authorized by: Rosario Rivas MD Consent: Consent obtained: Verbal Consent given by: Patient Risks, benefits, and alternatives were discussed: yes Risks discussed: Bleeding, pain and wound separation Alternatives discussed: No treatment [place] protocol: Patient identity confirmed: Verbally with patient Location: Location: Upper extremity Upper extremity location: Hand Hand location: R hand Procedure details: Wound appearance: No signs of infection, good wound healing and pink Number of sutures removed: 3 Post-procedure details: Procedure completion: Tolerated well, no immediate complications Rosario Rivas MD [place] [facility] Ramya tonia Result from Last 3 Months Insurance BLUE CROSS/BLUE SHIELD Care Teams Hr Assistant Relationship Specialty Start Date End Date Sameer Ly MD [address] [place] [address] [place] [address] PCP - General Family Medicine 10/24/24
--- OUTSIDE RECORDS SUMMARY | 2025-01-23 13:29 | XMS_ITS | Referral Summary ---
Author Organization [employer] ([place], [place], [place], [place]) Address [address] [place] [address] Care Team Providers Care Facility Administrator Name Role Phone Sameer Ly MD Primary Care Provider +1- [phone] Encounters Date Type Department Care Team Description 11/04/2024 Travel 11/04/2024 4:23 PM EDT - 11/04/2024 4:59 PM EDT Emergency [facility] Emergency Department [address] [place] [phone] Rosario Rivas MD Visit for suture removal (Primary Dx); Visit for wound check; Need for rabies vaccination Discharge Disposition: Home or Self Care 10/28/2024 Travel 10/28/2024 4:43 PM EDT - 10/28/2024 4:47 PM EDT Emergency [facility] Emergency Department [address] [place] [phone] Freda Sheehan MD Visit for wound check (Primary Dx) Discharge Disposition: Home or Self Care 10/26/2024 Travel 10/26/2024 4:26 PM EDT - 10/26/2024 5:07 PM EDT Emergency [facility] Emergency Department [address] [place] [phone] Calvin Burk MD Rabies, need for prophylactic vaccination against (Primary Dx) Discharge Disposition: Home or Self Care 10/24/2024 Travel 10/24/2024 12:44 PM EDT - 10/24/2024 1:09 PM EDT Emergency [facility] Emergency Department [address] [place] [phone] Skye Harry MD Need for immunization against rabies (Primary Dx) Discharge Disposition: Home or Self Care from Last 3 Months Allergies No known active allergies Medications No known medications Immunizations Name Administration Dates Next Due Rabies [...] 11/04/2024 4:25 PM EDT Plan of Treatment Not on file Procedures Procedure Name Priority Date/Time Associated Diagnosis [...] and wound separation Alternatives discussed: No treatment [place] protocol: Patient identity confirmed: Verbally with patient Location: Location: Upper extremity Upper extremity location: Hand Hand location: R hand Procedure details: Wound appearance: No signs of infection, good wound healing and pink Number of sutures removed: 3 Post-procedure details: Procedure completion: Tolerated well, no immediate complications us Rosario Rivas MD [place] [facility] Ramya l Result from Last 3 Months Insurance BLUE CROSS/BLUE SHIELD Care Teams Facility Administrator Relationship Specialty Start Date End Date Sameer Ly MD [address] [place] [address] PCP - General Family Medicine 10/24/24
[2025-01-23] MEDS: METHOCARBAMOL 500MG TABLET 750 MG PO (13:43)
[2025-01-23] MEDS: KETOROLAC 30MG/ML VIAL 15 MG IM (13:43)
[2025-01-23] MEDS: ACETAMINOPHEN 500MG TAB 500 MG PO (13:43)
== END 2025-01-23 14:47 | disposition home or self-care (01) ==
PROVIDERS: Emergency Provider Student in an Organized Health Care Education/Training Program; PCP Family Medicine
DX: M54.2 Cervicalgia (principal)
CPT/HCPCS: 96372; 99283; J1885

== ENCOUNTER 2025-04-26 11:00 | Outpatient (CLI) | payer BC, OTHER, SELFPAY ==
[2025-04-26 21:41] LABS: Hematocrit 45.3 % (42.0-52.0); Hemoglobin 15.0 g/dL (14.1-18.0); Immature Granulocytes % 0.4 %; Mean Corpuscular HGB Conc 33.1 g/dL (31.8-35.4); Mean Corpuscular Hemoglobin 29.2 pg (27.0-31.2); Mean Corpuscular Volume 88.1 fl (80-94); Nucleated Red Blood Cells % 0 %; Platelet Count 186 K/mm3 (142-424); Red Blood Count 5.14 M/mm3 (4.60-6.20); Red Cell Distribution Width-SD 45.1 fL; White Blood Count 10.5 K/mm3 (4.8-10.8)
[2025-04-26 22:27] LABS: Alanine Aminotransferase 29 U/L (12-78); Albumin Level 3.7 g/dl (3.5-5.0); Albumin/Globulin Ratio 1.4 (1.1-1.8); Alkaline Phosphatase 77 U/L (38-126); Anion Gap 12.9 mEq/L (5-15); Aspartate Amino Transferase 31 U/L (17-59); Bilirubin,Total 0.8 mg/dl (0.2-1.3); Blood Urea Nitrogen 13 mg/dl (9-20); Calcium 8.9 mg/dl (8.4-10.2); Carbon Dioxide 26 mmol/L (22.0-30.0); Chloride 102 mmol/L (98-107); Cholesterol 135 mg/dl (140-200); Creatinine,Serum 0.50 mg/dl (0.66-1.25); Estimated Glomerular Filt Rate 177 ml/min (>60); GFR (African American) 215 ML/MIN (>60); Globulin 2.6 g/dL (1.3-3.2); Glucose 92 mg/dl (74-100); HDL Cholesterol 25 mg/dl (40-60); Potassium 4.9 mmoL/L (3.5-5.1); Sodium 136 mmol/L (136-145); Total Protein,Serum 6.3 g/dl (6.3-8.2); Triglycerides 151 mg/dl (30-150)
[2025-04-26 22:28] LABS: Hemoglobin A1C 6.3 % (4.0-6.0)
--- OUTSIDE RECORDS SUMMARY | 2025-04-27 14:15 | XMS_ITS | Clinical Summary ---
Author Organization [employer] ([place], [place], [place], [place]) Address [address] [place] [address] Care Team Providers Care Safety Director Name Role Phone Sameer Ly MD Primary Care Provider +1- [phone] Allergies No known active allergies Medications No known medications Immunizations Immunization Administration Dates Next Due Rabies - Im [...] PCV) 10/23/1995 Lipid Panel 10/23/2011 COVID-19 VACCINE (2024- season) 2025 07/23/2021, 10/31/2020, 10/10/2020 Influenza Vaccine (#1) 2025 DTAP/TDAP/TD VACCINES (2 - T d or Tdap) 10/21/2034 10/21/2024 Insurance BLUE CROSS/BLUE SHIELD Care Teams Safety Director Relationship Specialty Start Date End Date Sameer Ly MD [address] [place] [address] PCP - General Family Medicine 10/24/24
--- OUTSIDE RECORDS SUMMARY | 2025-04-27 14:15 | XMS_ITS | Clinical Summary ---
Author Organization [facility] Address [address] [place] [address] Care Team Providers Care Manager [place] Name Role Phone Parminder Dudley MD Primary Care Provider + [phone] Allergies No known active allergies Medications fenofibrate (TRICOR) 145 MG tablet Take 145 mg by mouth Daily. Active lisinopril-hydro chlorothiazide (PRINZIDE,ZESTOR ETIC) 20-12.5 MG per tablet Take 1 tablet by mouth Daily. Active azithromycin (ZITHROMAX) 500 MG tablet Take 1 tablet by mouth Daily. 3 tablet 05/30/2017 Active Immunizations Immunization Administration Dates Next Due COVID-19 (PFIZER) Purple Cap Monovalent 11/01/19 21,10/10/2020 Family History Medical History Relation Name Comments Hypertension Father No Known Problems Mother Relation Name Status Comments Father Alive Mother Alive Social History Tobacco Use Types Packs/Day Years Used Date Smoking Tobacco: Every Day Cigarettes 0.5 10 Smokeless Tobacco: Never Tobacco Cessation:Ready to Q uit: No Comments:encouraged cessation, declined counseling Alcohol Use Standard Drinks/Week Comments No 0 (1 standard drink = 0.6 oz pur e alcohol) Abuse Screen Answer Date Recorded Unsafe at Home or Work/School Not on file Feels Threatened by Someone? Not on file 03/2023 Does Anyone Keep You from Co ntacting Others or Doint Things Outside the Home? Not on file 04/20/2023 Physical Sign of Abuse Present Not on file 1 Housing Stability Answer Date Recorded Current Living Arrangements Not on file 03/2023 Potentially Unsafe Housing Conditions Not on john e 04/20/2023 Family and Community Support Answer Sylvester e Recorded Help with Day-to-Day Activities Not on file 04/20/2023 Lonely or Isolated Not on file 04/20/2023 Employment Answer Date Recorded Do you want help finding or keeping work or a laura b? Not on file 04/20/2023 Disabilities Answer Date Recorded Concentrating, Remembering, or Making Decisions Difficulty Not on file 04/20/2023 Doing Errands Independently Difficulty Not on fi le 04/20/2023 Education Answer Date Recorded Help with school or training? Not on file Preferred Language Not on file 04/20/2023 Sex and Gender Information Value Date Recorded Sex Assigned at Not on file Legal Sex Male 1:20 PM EDT Gender Identity Not on file Sexual Orientation Not on file Last Filed Vital Signs Vital Sign Reading Time Taken Comments Blood Pressure - - Pulse 84 05/30/2017 9:57 AM EST Temperature 36.9 C (98.4 F) 05/30/2017 9:57 AM EST Respiratory Rate 24 05/30/2017 9:57 AM EST Oxygen Saturation 98% 05/30/2017 9:57 AM EST Inhaled Oxygen Concentration - - Weight 176 kg (388 lb) 05/30/2017 9:57 AM EST Height 188 cm (6' 2 ) 05/30/2017 9:57 AM EST Body Mass Index 49.82 05/30/2017 9:57 AM EST Plan of Treatment Health Maintenance Due Date Last Done Comments TDAP/TD VACCINES (1 - Tdap) 10/23/1995 ANNUAL PHYSICAL 05/30/2017 HEPATITIS C SCREENING 05/30/2017 COLOGUARD 2021 COLON CANCER SCREENING 5 YEA R SIGMOIDOSCOPY 2021 COLONOSCOPY 2021 COL[address]ECTAL CANCER SCREENING 2021 CT COLONOGRAPHY 2021 FECAL OCCULT BLOOD TEST 2021 FIT Testing (1 year) 2021 INFLUENZA VACCINE 02/10/2025 Pneumococcal Vaccine 0-49 Aged Out No longer eligible based on patient's age to complete this topic Insurance PPO Care Teams Manager [place] Relationship Specialty Start Date End Date Parminder Dudley MD [facility] [address] [address] PCP - General Adolescent Medicine 05/30/17
--- OUTSIDE RECORDS SUMMARY | 2025-04-27 14:15 | XMS_ITS | Referral Summary ---
Author Organization [employer] ([place], [place], [place], [place]) Address [address] [place] [address] Care Team Providers Care Insert Operator Name Role Phone Sameer Ly MD Primary Care Provider +1- [phone] Allergies No known active allergies Medications No [...] EDT Plan of Treatment Not on file Insurance BLUE CROSS/BLUE SHIELD Care Teams Insert Operator Relationship Specialty Start Date End Date Sameer Ly MD [address] [place] [address] PCP - General Family Medicine 10/24/24
== END 2025-04-26 23:59 | disposition home or self-care (01) ==
LOC: LAB.DROPOF 04-27 14:06
PROVIDERS: PCP Family Medicine; Visit Provider Family Medicine
DX: E78.5 Hyperlipidemia, unspecified (principal); I10 Essential (primary) hypertension; E11.9 Type 2 diabetes mellitus without complications
CPT/HCPCS: 80053; 80061; 83036; 85025